=== PATIENT | male | born 1975 ===

== ENCOUNTER 2019-12-08 12:39 | Emergency (ER) | payer SELFPAY ==
[2019-12-08 13:07] VITALS: BP 146/85
--- NOTE | 2019-12-08 13:11 | Emergency Department Report ---
Chief Complaint: Urogenital-Male Stated Complaint: [facility]/COVID CHECK - HPI History of Present Illness: 44 y/o male comes in for burning with urination and COVID-19 testing. Admits to unprotected intercourse. Denies any fever, chill, no Nausea or vomiting. No abd pain, SOB or chest pain. No hematuria - Exam Physical Exam: axo times 3 NAD nontoxic ambulatory without difficulties MSE screening note: Focused history and physical exam performed. Due to findings the following was ordered: 44 y/o male comes in for burning with urination and COVID-19 testing. Admits to unprotected intercourse. Denies any fever, chill, no Nausea or vomiting. No abd pain, SOB or chest pain. Referral to Dr. Greene and [facility]. ED Disposition for MSE Disposition: MED SCREENING EXAM-LEFT Condition: Stable
== END 2019-12-08 13:26 | disposition left against medical advice (07) ==
LOC: ED 12:39
DX: R30.9 Painful micturition, unspecified (principal); Z53.21 Procedure and treatment not carried out due to patient leaving prior to being seen by health care provider